=== PATIENT | female | born 1950 | race Caucasian/White ===

== ENCOUNTER 2019-04-25 | Emergency (ER) | payer MEDICARE ==
[2019-04-25] MEDS ORDERED: WATER PILL (22:35)
[2019-04-25] MEDS ORDERED: CHOLESTEROL MED (22:35)
[2019-04-25] MEDS ORDERED: AMOXICILLIN500 MG PO (23:04)
== END 2019-04-25 23:25 | disposition home or self-care (01) ==
PROC: 0HQGXZZ Repair Left Hand Skin, External Approach (ICD-10-PCS; principal; 2019-04-25)
DX: S61.112A Laceration without foreign body of left thumb with damage to nail, initial encounter (principal); I10 Essential (primary) hypertension; W23.0XXA Caught, crushed, jammed, or pinched between moving objects, initial encounter; Y92.009 Unspecified place in unspecified non-institutional (private) residence as the place of occurrence of the external cause

== ENCOUNTER 2019-04-26 | Emergency (ER) | payer MEDICARE ==
[~2019-04-26] MED LIST: AMOXICILLIN500 MG PO; CHOLESTEROL MED; WATER PILL
== END 2019-04-26 14:04 | disposition home or self-care (01) ==
DX: S61.012D Laceration without foreign body of left thumb without damage to nail, subsequent encounter (principal); X58.XXXD Exposure to other specified factors, subsequent encounter